=== PATIENT | female | born 1975 | race Caucasian/White ===

== ENCOUNTER 2024-07-21 06:04 | Day surgery (SDC) | payer BC ==
[2024-07-21] MEDS: Lactated Ringers 1,000 ML IV SCH (06:14)
[2024-07-21 06:17] LABS: HCG URINE TEST NEGATIVE (NEGATIVE)
[2024-07-21] MEDS ORDERED: Marcaine Mpf 0.5% Vial 30 Ml ONE (06:20)
[2024-07-21] MEDS ORDERED: Xylocaine 1% Vial 30 ML PF IJ ONE (06:20)
[2024-07-21] MEDS: CEFAZOLIN 2 GM/100 ML NaCl 2 GM/100 ML IVPB IV SCH (06:27)
[2024-07-21 06:28] LABS: Hematocrit 41.2 % (34.1-44.9); Hemoglobin 14.5 g/dL (11.2-15.7); Mean Cell Volume 92.6 fL (79.4-94.8); Mean Corpuscular Hemoglobin 32.6 pg (25.6-32.2); Mean Corpuscular Hgb Concent. 35.2 g/dL (32.2-35.5); Mean Platelet Volume 9.4 fL (9.4-12.3); Platelet Count 232 x10^3/uL (182-369); Red Blood Count 4.45 x10^6/uL (3.93-5.22); Red Cell Distribution Width 13.1 % (11.7-14.4); White Blood Count 5.2 x10^3/uL (3.98-10.04)
[2024-07-21 06:30] VITALS: RESP 18
[2024-07-21 06:41] LABS: ALBUMIN 4.5 g/dL (3.5-5.0); ANION GAP 14.6 MEQ/L (5-15); BILIRUBIN,TOTAL 0.5 mg/dL (0.2-1.3); Calcium 9.6 mg/dL (8.4-10.2); Creatinine 1 0.75 mg/dL (0.52-1.04); EST GLOMERULAR FILTRATION RATE 98.1 ML/MIN; Potassium 4.1 mmol/L (3.5-5.1); Total Protein 7.2 g/dL (6.3-8.2)
[2024-07-21] MEDS ORDERED: Versed 2 MG/2 ML Injection ONE ×2 (07:01→07:42)
[2024-07-21] MEDS ORDERED: Xylocaine-Mpf 2% 5 Ml Vial ONE (07:37)
[2024-07-21] MEDS ORDERED: propofoL IV ONE (07:38)
[2024-07-21] MEDS ORDERED: Zofran 4 MG/2 ML VIAL ONE (08:11)
--- NOTE | 2024-07-21 09:08 | XRAY ---
Indication: Left foot hallux exostectomy. Intraoperative fluoroscopy provided for 50 seconds. 4 digital spot images submitted for interpretation demonstrates instrumentation 1st IP joint. Correlate with intraoperative findings/report.
--- NOTE | 2024-07-21 09:39 | XRAY ---
50 seconds of fluoroscopy were used in surgery for an exostectomy of the proximal phalanx of the left hallux.
[2024-07-21 09:55] VITALS: BP 109/65; PULSE 83; TEMP 98.2; O2SAT 99
--- NOTE | 2024-07-22 09:03 | OP ---
SURGERY DATE/TIME: 07/21/2024 [id number] PREOPERATIVE DIAGNOSES: 1) Left foot pain. 2) Posttraumatic arthritis distal interphalangeal joint, left hallux. 3) Exostosis, distal phalanx. 4) Deformity of proximal phalanx. POSTOPERATIVE DIAGNOSES: 1) Left foot pain. 2) Posttraumatic arthritis distal interphalangeal joint, left hallux. 3) Exostosis, distal phalanx. 4) Deformity of proximal phalanx. PROCEDURES: 1) Exostectomy of distal phalanx. 2) Cheilectomy of proximal phalanx head. SURGEON: Terrell Mosher DPM. AUTOMOTIVE PARTS SPECIALIST: HOLLY Avila, and [place] Pichardo. HEMOSTASIS: Ankle tourniquet set to 250 mmHg for a total of 15 total tourniquet minutes. ESTIMATED BLOOD LOSS: Minimal. MATERIALS: 4-0 Monocryl, 3-0 nylon. INJECTABLES: Spinal block, see anesthesia report for details, plus 10 mL of 1:1 mixture of 1% lidocaine plain and 0.5% bupivacaine plain injected in a hallux block-type fashion. INDICATION FOR PROCEDURE: The patient is a very pleasant 48-year-old female who presented to my service for pain associated with an exostosis on the distal aspect of her distal interphalangeal joint of the left hallux. Patient has had this issue since she had fractured it and she did not seek management for the fracture. There was a distal angulation of the toe at the level of the proximal phalanx which led to a flexor contracture and, as a result, there was some displacement of the joint line as well as an exostosis that formed as it was healing. Patient does not have significant issues as there is restricted range of motion; however, the exostosis over the distal phalanx was what was causing her the majority of her pain. A discussion was held in regard to options for surgical intervention. All risks, complications, and benefits were discussed including, but not limited to, infection, hematoma, seroma, possibility of delayed wound healing, non-wound healing, and possible need for further surgical intervention at a later date. No guarantees were provided as to the outcome of surgical intervention; however, the goal of the procedure is to eliminate the exostosis and what is causing her pain as well as potentially allowing for more range of motion, however, that is not the main priority of the procedure. From that standpoint, plenty of time was allowed for the patient to ask questions, which were answered to her apparent satisfaction. It was at this time we decided to proceed. DESCRIPTION OF PROCEDURE AND FINDINGS: Patient was brought into the operating room and placed on the operating room table. At this time, Anesthesia provided a spinal block. Once the spinal block took full effect, decision was made to proceed with the operation. Patient was then prepped and draped in the typical sterile fashion and lowered onto the surgical field. At this time, the left lower extremity was prepped and draped in the typical sterile fashion after having a tourniquet applied to the left ankle and set to 250 mmHg. At this time, an Esmarch was utilized to exsanguinate the foot, tourniquet was inflated. An injection consisting of 10 mL of 1:1 mixture of 1% lidocaine plain and 0.5% bupivacaine plain was injected in a hallux block-type fashion. At this time, a transverse incision was made over the distal interphalangeal joint, excising the skin lesion that was associated with the contracture. Once this was excised, careful dissection was carried down to the joint lining and making sure not to damage the extensor hallucis longus tendon which crossed this path, and was lifted from its soft tissue attachments and retracted. From that standpoint, the exostosis on the distal phalanx was then resected utilizing a pair of rongeurs and then a hand rasp. Following this, there was a significant amount of angulation to the distal interphalangeal joint at the level of the proximal phalangeal head. Decision was made to proceed with a cheilectomy of the head of the metatarsal to flatten this area down to prevent recurrence and also improve some range of motion as the joint was inspected deeming it adequate for retaining some range of motion. An 18 mm sagittal saw was then utilized to flatten out the dorsal surface of the joint and restore some of the biomechanics to the distal interphalangeal joint. There was approximately 10 more degrees of plantarflexion and 5 more degrees of dorsiflexion that were appreciated at the level of this joint at this time. From that standpoint, copious amounts of sterile saline were utilized to flush the surgical site, 4-0 Monocryl was then utilized to coapt the subcutaneous skin edges and a 3-0 nylon was utilized in a horizontal mattress-type fashion to coapt the skin edges in an everted-type fashion. Dressing consisting of Betadine, Adaptic, 4 x 4, Kerlix, ABD, and Ambrose was then applied to the patient's left lower extremity. Patient was then reversed from anesthesia and returned to the postoperative anesthesia care unit with vital signs stable and vascular status intact. Patient handled the anesthesia as well as the procedure without significant complication. Postoperative orders as indicated in the patient's discharge chart.
== END 2024-07-21 10:01 | disposition home or self-care (01) ==
LOC: SDC 06:04
PROVIDERS: ATTEND Podiatrist Foot & Ankle Surgery
DX: M13.872 Other specified arthritis, left ankle and foot (principal); M79.672 Pain in left foot; M89.9 Disorder of bone, unspecified; M21.6X2 Other acquired deformities of left foot
CPT/HCPCS: 26210; 28289; 36415; 73630; 76000; 80053; 81025; 85027; J0690; J2250; J2405; J2704